=== PATIENT | female | born 1955 | race Caucasian/White ===

== ENCOUNTER 2017-03-29 11:20 | Emergency (ER) | payer MEDICARE, BC ==
[~2017-03-29] VITALS: Ht 167.6 cm; Wt 76.5 kg
[2017-03-29 11:40] VITALS: Ht 167.6 cm; Wt 76.5 kg
--- NOTE | 2017-03-29 12:23 | ERA ---
ER Documentation Chief Complaint Date/Time DATE: 03/29/17 TIME: 12:23 Chief Complaint Chest pain chest pain HPI The patient is a 61-year-old female, presenting to the ER because of substernal chest pain for many years, was for the last 4 days, 12/25, nonradiating. She denied chest pain with exertion vomiting or diaphoresis. She denies fever, chills, neck pain, dyspnea, abdominal pain, vomiting, dysuria, diarrhea. She was recently started on Neurontin about 2 months ago. She does not smoke, drinks socially, denies unusual stress Past medical history: Migraine, mitral valve prolapse Past surgical history: 3 , bilateral carpal tunnel surgery, right elbow , right shoulder, right hand ROS All systems reviewed and are negative except as per history of present illness. Medications Home Meds Reported Medications Albuterol Sulfate* (Proair HFA*) 8.5 Gm Hfa.aer.ad, 2 PUFF INH Q6H Y for WHEEZING AND SOB, #1 INHALER 03/29/17 Zolmitriptan (Zolmitriptan ODT) 5 Mg Tab.rapdis, 5 MG PO BID Y for MIGRAINE, TAB May repeat after 2 hours, MAX 5 mg/single dose; MAX 10 mg/24 hours 03/29/17 Fluoxetine Hcl* (Fluoxetine Hcl*) 20 Mg Capsule, 20 MG PO DAILY, CAP 03/29/17 Gabapentin* (Gabapentin*) 300 Mg Capsule, 300 MG PO DAILY, #60 CAP 03/29/17 Allergies Allergies: Coded Allergies: No Known Allergy (Unverified , 03/29/17) Physical Exam Vitals Vital Signs Date Time Temp Pulse Resp B/P Pulse Ox O2 Delivery O2 Flow Rate FiO2 03/29/17 16:13 98.2 61 19 111/77 98 Room Air 03/29/17 11:40 98.3 69 18 118/60 97 Physical Exam Const: No acute distress. Head: Atraumatic. Eyes: Normal Conjunctiva. ENT: Normal External Ears, Nose and Mouth. Neck: Full range of motion. No meningismus. Resp: Clear to auscultation bilaterally. Cardio: Regular rate and rhythm, no murmurs. Abd: Soft, non distended, normal bowel sounds, non tender. Skin: No petechiae or rashes. Back: No midline or flank tenderness. Ext: No cyanosis, or edema. Neur: Awake and alert. No focal deficit Psych: Normal Mood and Affect. Result Diagram: 03/29/17 1245 03/29/17 1245 Results 24 hrs Laboratory Tests Test 03/29/17 12:45 03/29/17 15:20 White Blood Count 6.410^3/ul Red Blood Count 3.9210^6/ul Hemoglobin 13.1g/dl Hematocrit 37.5% Mean Corpuscular Volume 95.7fl Mean Corpuscular Hemoglobin 33.4pg Mean Corpuscular Hemoglobin Concent 34.9g/dl Red Cell Distribution Width 12.6% Platelet Count 70338^3/UL Mean Platelet Volume 9.5fl Neutrophils % 58.4% Lymphocytes % 31.8% Monocytes % 6.3% Eosinophils % 2.7% Basophils % 0.5% Nucleated Red Blood Cells % 0.0/100WBC Neutrophils # 3.710^3/ul Lymphocytes # 2.010^3/ul Monocytes # 0.410^3/ul Eosinophils # 0.210^3/ul Basophils # 0.010^3/ul Nucleated Red Blood Cells # 0.010^3/ul Prothrombin Time 11.5Sec Prothrombin Time Ratio 0.9 INR International Normalized Ratio 0.84 Activated Partial Thromboplast Time 26.8Sec Sodium Level 141mmol/L Potassium Level 3.7mmol/L Chloride Level 104mmol/L Carbon Dioxide Level 27mmol/L Anion Gap 14 Blood Urea Nitrogen 12mg/dl Creatinine 0.64mg/dl Glucose Level 93mg/dl Calcium Level 8.8mg/dl Troponin I < 0.012ng/ml < 0.012ng/ml Procedures/MDM EKG: At 11:45 PM read by emergency physician Rate/Rhythm: Normal Sinus Rhythm 62 beats/min QRS, ST, T-waves: No ST elevation, no T inversion, LAD, low voltage QRS Impression: Abnormal EKG EKG: At 14:54 PM read by emergency physician Rate/Rhythm: Normal Sinus Rhythm 55 beats/min QRS, ST, T-waves: No ST elevation, no T inversion, LAD, low voltage QRS Impression: Abnormal EKG [place] [id number] Radiology Main Line: [phone] DIAGNOSTIC IMAGING REPORT Patient: SUSAN BOATENG : 1955 Age: 61 Sex: F MR #: [id number] DOS: 03/29/17 1231 Ordering MD: YECENIA WHELAN MD Location: E/R Room/Bed: PROCEDURE: XR Chest 1 View. CLINICAL INDICATION: Chest pain TECHNIQUE: AP view of the chest was obtained. COMPARISON: None. FINDINGS: The cardiomediastinal silhouette is within normal limits. Scattered subsegmental atelectasis is noted in the bilateral lower lobes. No consolidations are identified. No pneumothorax is seen. Osseous structures are intact. IMPRESSION: Scattered subsegmental atelectasis in the bilateral lower lobes. RPTAT: AA .Barrington Chamberlain MD, MD Date Time Electronically viewed and signed by .Barrington Chamberlain MD, MD on 03/29/2017 13:08 .P/ CC: YECENIA WHELAN MD MEDICAL MAKING DECISION: The patient is a 61-year-old female presenting with acute on chronic chest pain of unclear etiology. She remains well in emergency department The differential diagnoses considered include but are not limited to acute coronary syndrome, acute myocardial infarction, pericarditis, pulmonary embolism , aortic dissection, pneumonia, pleural effusion, pneumothorax, GERD, chest wall pain. Departure Diagnosis: Primary Impression: Chest pain Condition: Good Comments The patient presents with chest pain and I considered pulmonary embolism, aortic dissection, pneumothorax among other diagnoses. Evaluation for acute coronary syndrome was performed. The HEART score (www.mdcalc.com) was utilized for risk stratification and found to be <= 3. Repeat EKG and troponin @ 3 hours were unchanged. Based on this evaluation the patients risk of major adverse cardiac events is <1%. Shared decision making occurred with patient and the decision has been made to discharge the patient for outpatient evaluation and functional study within 72 hours. YECENIA WHELAN MD March 29, 2017 12:23
[2017-03-29] MEDS ORDERED: GABA300C16 PO (12:42)
[2017-03-29] MEDS ORDERED: ALBU8.5H3 INH (12:43)
[2017-03-29] MEDS ORDERED: FLUO20CA22 PO (12:43)
[2017-03-29] MEDS ORDERED: ZOLM5TAB10 PO (12:43)
[2017-03-29 12:57] LABS: ADD SCAN DIFF NO
[2017-03-29 12:58] LABS: BASOPHILS % 0.5 % (0.0-2.0); EOSINOPHILS # 0.2 10^3/ul (0.0-0.5); EOSINOPHILS % 2.7 % (0.0-7.0); HEMATOCRIT 37.5 % (37.0-47.0); HEMOGLOBIN 13.1 g/dl (12.0-16.0); LYMPHOCYTES % 31.8 % (15.0-51.0); MEAN CORPUSCULAR HEMOGLOBIN 33.4 pg (29.0-33.0); MEAN CORPUSCULAR HGB CONC 34.9 g/dl (32.0-37.0); MEAN CORPUSCULAR VOLUME 95.7 fl (82.0-101.0); MEAN PLATELET VOLUME 9.5 fl (7.4-10.4); MONOCYTE # 0.4 10^3/ul (0.3-0.9); MONOCYTES % 6.3 % (0.0-11.0); NEUTROPHIL # 3.7 10^3/ul (1.6-7.5); NEUTROPHILS % 58.4 % (39.0-77.0); PLATELET COUNT 187 10^3/UL (140-415); RED BLOOD COUNT 3.92 10^6/ul (4.20-5.40); RED CELL DISTRIBUTION WIDTH 12.6 % (11.5-14.5); WHITE BLOOD COUNT 6.4 10^3/ul (4.8-10.8)
--- NOTE | 2017-03-29 13:08 | RADRPT ---
PROCEDURE: XR Chest 1 View. CLINICAL INDICATION: Chest pain TECHNIQUE: AP view of the chest was obtained. COMPARISON: None. FINDINGS: The cardiomediastinal silhouette is within normal limits. Scattered subsegmental atelectasis is note d in the bilateral lower lobes. No consolidations are identified. No pneumothorax is seen. Osseous structures are intact. IMPRESSION: Scattered subsegmental atelectasis in the bilateral lower lobes. RPTAT: AA .Barrington Chamberlain MD, MD Date Time Electronically viewed and signed by .Barrington Chamberlain MD, on 03/29/2017 13:08 .P/
[2017-03-29 13:14] LABS: CHLORIDE 104 mmol/L (97-110)
[2017-03-29 13:15] LABS: POTASSIUM 3.7 mmol/L (3.5-5.1); SODIUM 141 mmol/L (135-144)
[2017-03-29 13:16] LABS: INR 0.84; PROTIME 11.5 Sec (12.2-14.2); PT RATIO 0.9
[2017-03-29 13:17] LABS: CREATININE 0.64 mg/dl (0.44-1.00); PARTIAL THROMBOPLASTIN TIME 26.8 Sec (25.0-35.0)
[2017-03-29 13:18] LABS: ANION GAP 14 (8-16); BLOOD UREA NITROGEN 12 mg/dl (7-20); CALCIUM 8.8 mg/dl (8.4-10.2); CARBON DIOXIDE 27 mmol/L (21-31); GLUCOSE 93 mg/dl (70-220)
[2017-03-29 13:30] LABS: TROPONIN-I < 0.012 ng/ml (0.00-0.12)
[2017-03-29 16:13] VITALS: BP 111/77; PULSE 61; RESP 19; TEMP 98.2
== END 2017-03-29 16:14 | disposition home or self-care (01) ==
LOC: E/R 11:20
DX: R07.2 Precordial pain (principal); R40.2252 Coma scale, best verbal response, oriented, at arrival to emergency department; R07.9 Chest pain, unspecified; R40.2142 Coma scale, eyes open, spontaneous, at arrival to emergency department; R40.2362 Coma scale, best motor response, obeys commands, at arrival to emergency department
CPT/HCPCS: 36415; 71010; 80048; 84484; 85025; 85610; 85730; 93005